=== PATIENT | female | born 1990 | race Caucasian/White ===

== ENCOUNTER 2016-02-24 09:10 | Emergency (ER) | payer OTHER ==
[2016-02-24 09:14] VITALS: BMI 20.9
[2016-02-24 09:58] LABS: URINE APPEARANCE CLEAR; URINE BILIRUBIN NEGATIVE (NEGATIVE); URINE BLOOD NEGATIVE (NEGATIVE); URINE COLOR YELLOW; URINE GLUCOSE (UA) NEGATIVE (NEGATIVE); URINE KETONE NEGATIVE (NEGATIVE); URINE LEUK ESTERASE NEGATIVE (NEGATIVE); URINE NITRITE NEGATIVE (NEGATIVE); URINE PROTEIN NEGATIVE (NEGATIVE); URINE UROBILINOGEN NEGATIVE E.U./dl (0.2-1.0)
--- NOTE | 2016-02-24 10:10 | PDOC ---
History of Present Illness - General Chief Complaint: Pain Stated Complaint: ABD CRAMPS Time Seen by Provider: 02/24/16 09:48 History Source: Patient Exam Limitations: No Limitations - History of Present Illness Travel History: No Initial Comments: 02/24/16 10:01 HPI: This 25 year old female presents with her spouse with c/o abd pain and vaginal clear discharge for three days. 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 She denies odor, bleeding, n, v, dsyuria, or sharp pain. Chief Compliant: abd cramping for 3 days and clear discharge. PMH: none FH: Pt has not recently traveled outside the country in the last 30 days. Pt has not been in contact with people who have traveled out of the country, in contact with people who have been ill with fever, n, v, d. SH: smoking use: NONE illicit drug use: NONE alcohol use: NONE employment/educational status: sexual history: PSH: Tubal ligation? (she is not sure if they tied or burned it or what she actually signed in 2013), 3 c sections Home med use noted on APR Allergies:nka Immunizations: PCP: Dr. Anthony Luevano [facility] [place] OFFICE COORDINATOR RECEPTIONIST:none for 2 years LMP:Feb 06 G3 P 3: 02/24/16 11:43 Past History - Past Medical History Allergies/Adverse Reactions: Allergies Allergy/AdvReac Type Severity Reaction Status Date / Time No Known Allergies Allergy Verified 02/24/16 09:14 Home Medications: Ambulatory Orders NK [No Known Home Medication] 02/24/16 Asthma: No Cancer: No Cardiac Disorders: No Diabetes: No HTN: No Seizures: No Thyroid Disease: No - Immunization History Immunization Up to Date: Yes - Psycho/Social/Smoking Cessation Hx Anxiety: No Suicidal Ideation: No Smoking History: Never smoked Have you smoked in the past 12 months: No Hx Alcohol Use: No Drug/Substance Use Hx: No Substance Use Type: None Hx Substance Use Treatment: No Review of Systems - Review of Systems Able to Perform ROS?: Yes (General statement: ) Comments:: 02/24/16 10:05 General statement: Abdominal cramping and vaginal discharge for 3 days Hematology: neg history of bleeding/blood thinners Skin: Neg for lesions, rash, bruising. HEENT: Neg symptoms Respiratory: Neg SOB or difficulty in breathing Cardiac: Neg chest pain GI: Abdominal cramping : Neg problems on voiding MS: Neg for joint pain/stiffness, no edema Neuro: Neg for LOC, weakness, Endocrine: Neg for excess thirst/hunger, cold/heat intolerance, excess sweating Allergies: Neg for allergies 02/24/16 11:46 *Physical Exam - Vital Signs Last Vital Signs Temp Pulse Resp BP Pulse Ox 97.8 F 84 20 95/63 100 02/24/16 09:11 02/24/16 09:11 02/24/16 09:11 02/24/16 09:11 02/24/16 09:11 - Physical Exam Comments: 02/24/16 10:05 General Appearance: This well appearing 5-year-old V/S: hemodynamically stable, afebrile Skin: WNL of pt's skin color, no signs of pallor, mottling, cyanosis Head:symmetrical Eyes: EOM's intact, PERRLA Ears: denies pain Nose: patent Throat: lips, teeth, gums, tongue, buccal mucos pink and moist Lungs: Chest symmetry equal. Cap refill <3 seconds. Lung sounds clear Cardiac: PMI at R 4MCL space, pos S1 and S2, regular rate. Abdomen: Soft, round, nontender PELVIC EXAM:External genitalia normal, normal vulva, no skin lesions. Cervix, adnexa, vaginal vault and uterus normal, no bleeding or clots noted. Ovaries and uterus normal size, no tenderness to palpation. No discharge or odor. Abdomen, back and flank are normal, and there is no back or flank pain. PELVIC EXAM:External genitalia normal, normal vulva, no skin lesions. Cervix, adnexa, vaginal vault and uterus normal, no bleeding or clots noted. Ovaries and uterus normal size, no tenderness to palpation. No discharge or odor. Abdomen, back and flank are normal, and there is no back or flank pain. : Not observed Muscularskeletal: Gait steady, ambulated in to ER, no edema +PMS Neuro: AAOx3, cognitively intact, speech clear and appropriate. 02/24/16 11:46 Medical Decision Making - Medical Decision Making 02/24/16 11:46 Pt seen and examined. She is c/o vaginal drainage and cramping. A/P R/o ovarian cyst, torsion, 1. u/a 2. hcg 3. transvaginal u/s 02/24/16 12:51 u/s shows no sign of ovarian cysts, torsion or emergent concern. I will print out report and give pt copy to have a manager body follow up down. ua/ neg and neg hcg. motrin only for cramps *DC/Admit/Observation/Transfer Diagnosis at time of Disposition: Abdominal cramping - Discharge Dispostion Disposition: HOME Condition at time of disposition: Stable Admit: No - Referrals Referrals: Adriana Haq MD [Staff Physician] - - Patient Instructions Printed Discharge Instructions: How to Perform a Breast Self-examination Additional Instructions: Discharge instructions 1. Please follow up with your primary physician within the next few days and explain that you have been seen here in the Emergency Room for abdominal cramping and vaginal discharge. . 2. If you experience any worsening of symptoms, please return to the ER 3. Rest, avoid sexual intercourse until follow up with OFFICE COORDINATOR RECEPTIONIST, avoid douching, tampon use or vaginal inserts. If you develop increase pain or vaginal bleeding abnormally, notify your OFFICE COORDINATOR RECEPTIONIST 4. Drink plenty of water and take motrin for pain. - Post Discharge Activity Work/School Note: Back to Work
[2016-02-24 13:20] VITALS: BP 124/74; PULSE 77; TEMP 98.6
== END 2016-02-24 13:18 | disposition home or self-care (01) ==
LOC: JER 09:10
DX: R10.9 Unspecified abdominal pain (principal)
CPT/HCPCS: 76830-TC; 76856-TC; 81003; 84703; 99281-25

== ENCOUNTER 2017-10-07 03:57 | Emergency (ER) | payer OTHER ==
[2017-10-07 04:51] VITALS: BP 122/58; PULSE 71; TEMP 97.9; BMI 23.6
[2017-10-07] MEDS ORDERED: DIPHTH,PERTUSS(ACELL),TET 0.5 ML DISP.SYRIN IM ONE (05:14)
--- NOTE | 2017-10-07 05:14 | PDOC ---
History of Present Illness - General Chief Complaint: Edema Stated Complaint: SWOLLEN TOE Time Seen by Provider: 10/07/17 04:31 History Source: Patient Exam Limitations: No Limitations - History of Present Illness Initial Comments: 10/07/17 05:16 Patient is a 26-year-old female with no past medical history who presents to the emergency department today for right first toe pain. Patient states that she had a hangnail to the right first toe and she picked it off. She states that now the area is painful and swollen. She believes the pain is worse from the heels she wore tonight. Denies fevers, chills, nausea, vomiting, weakness and tingling to the extremity. Past History - Travel Traveled outside of the country in the last 30 days: No Close contact w/someone who was outside of country & ill: No - Past Medical History Allergies/Adverse Reactions: Allergies Allergy/AdvReac Type Severity Reaction Status Date / Time No Known Allergies Allergy Verified 10/07/17 04:50 Home Medications: Ambulatory Orders Cephalexin Monohydrate [Keflex -] 500 mg PO BID #14 capsule 10/07/17 Sulfamethoxazole/Trimethoprim [Bactrim Ds -] 1 tab PO BID #14 tablet 10/07/17 Asthma: No Cancer: No Cardiac Disorders: No Diabetes: No HTN: No Seizures: No Thyroid Disease: No - Immunization History Immunization Up to Date: Yes - Suicide/Smoking/Psychosocial Hx Smoking History: Never smoked Have you smoked in the past 12 months: No Information on smoking cessation initiated: No Hx Alcohol Use: No Drug/Substance Use Hx: No Substance Use Type: None Hx Substance Use Treatment: No Review of Systems - Review of Systems Able to Perform ROS?: Yes Comments:: 10/07/17 05:17 CONSTITUTIONAL: Absent: fever, chills, diaphoresis, generalized weakness, malaise, loss of appetite HEENT: Absent: rhinorrhea, nasal congestion, throat pain, throat swelling, difficulty swallowing, mouth swelling, ear pain, eye pain, visual Changes CARDIOVASCULAR: Absent: chest pain, loss of consciousness, palpitations, irregular heart rate, peripheral edema RESPIRATORY: Absent: cough, shortness of breath, dyspnea with exertion, orthopnea, wheezing, stridor, hemoptysis GASTROINTESTINAL: Absent: abdominal pain, abdominal distension, nausea, vomiting, diarrhea, constipation, melena, hematochezia GENITOURINARY: Absent: dysuria, frequency, urgency, hesitancy, hematuria, flank pain, genital pain MUSCULOSKELETAL: Present: R first toe pain Absent: myalgia, joint swelling SKIN: Absent: rash, itching, pallor HEMATOLOGIC/IMMUNOLOGIC: Absent: easy bleeding, easy bruising, lymphadenopathy, frequent infections ENDOCRINE: Absent: unexplained weight gain, unexplained weight loss, heat intolerance, cold intolerance NEUROLOGIC: Absent: headache, focal weakness or paresthesias, dizziness, unsteady gait, seizure, mental status changes, bladder or bowel incontinence PSYCHIATRIC: Absent: anxiety, depression, suicidal or homicidal ideation, hallucinations. Is the patient limited Welsh proficient: No *Physical Exam - Vital Signs Last Vital Signs Temp Pulse Resp BP Pulse Ox 97.9 F 71 19 122/58 100 10/07/17 04:00 10/07/17 04:00 10/07/17 04:00 10/07/17 04:00 10/07/17 04:00 - Physical Exam Comments: 10/07/17 05:18 GENERAL: Well developed, well nourished. Awake and alert. No acute distress. MUSCULOSKELETAL Normal range of motion at all joints. No bony deformities or tenderness. No CVA tenderness. EXTREMITIES: No cyanosis. No clubbing. No edema. No calf tenderness. SKIN: R first toe nail partially missing to the lateral aspect of the toe. There is surrounding edema and warmth consistent with cellulitis surrounding the nail bed. The cellulitis is non-circumferential .Warm and dry. Normal capillary refill. No jaundice. NEUROLOGICAL: Alert, awake, appropriate. Cranial nerves 2-12 intact. No deficits to light touch and temperature in face, upper extremities and lower extremities. No motor deficits in the in face, upper extremities and lower extremities. Normoreflexic in the upper and lower extremities. Normal speech. Toes are down- going bilaterally. Gait is normal without ataxia. Medical Decision Making - Medical Decision Making 10/07/17 05:21 Patient is a 26-year-old female with no past medical history who presents to the emergency department today for right first toe pain. Patient states that she had a hangnail to the right first toe and she picked it off. -On exam, cellulitis surrounding the nail bed. The cellulitis is non- circumferential. -Lateral aspect of big toe is missing with scab over top of the area of missing nail. No paronychia present. -Toe was soaked in warm water and betadine. Unable to debride the toe at this time -Tetanus shot updated -Will dc home with abx and podietry follow up. Return precautions given. Pt understands all dc instructions and all questions were answered. *DC/Admit/Observation/Transfer Diagnosis at time of Disposition: Cellulitis Qualifiers: Site of cellulitis: extremity Site of cellulitis of extremity: toe Laterality: right Qualified Code(s): L03.031 - Cellulitis of right toe - Discharge Dispostion Disposition: HOME Condition at time of disposition: Stable - Referrals Referrals: Dru Lazaro RES [Primary Care Provider] - Sourav Pritchett MD [Staff Physician] - - Patient Instructions Printed Discharge Instructions: DI for Cellulitis -- Adult Additional Instructions: You have cellulitis. This is a skin infection. Please take the Bactrim and Keflex twice a day for one week. Please take all the antibiotics even if you feel better. You may use warm water soaks to the area. Please do this approximately 4-5 times a day. Please avoid shaving the skin around the area of redness. You may take Tylenol or Motrin as needed for pain. Please follow up with a podietrist on Monday. A referral has been provided to you. Return to the emergency department if you have worsening redness, fevers, increasing pain, or have any changes in your symptoms. - Post Discharge Activity
== END 2017-10-07 06:21 | disposition home or self-care (01) ==
LOC: JER 03:57
PROC: 3E0234Z Introduction of Serum, Toxoid and Vaccine into Muscle, Percutaneous Approach (ICD-10-PCS; principal; 2017-10-07)
DX: L03.031 Cellulitis of right toe (principal)
CPT/HCPCS: 90471; 90715; 99281-25

== ENCOUNTER 2018-12-19 16:35 | Emergency (ER) | payer OTHER ==
[2018-12-19 16:46] VITALS: BP 118/70; PULSE 75; TEMP 98.5; BMI 23.6
--- NOTE | 2018-12-19 16:46 | PDOC ---
Rapid Medical Evaluation Chief Complaint: Headache Time Seen by Provider: 12/19/18 16:44 Medical Evaluation: Allergies Allergy/AdvReac Type Severity Reaction Status Date / Time No Known Allergies Allergy Verified 10/07/17 04:50 12/19/18 16:44 I have performed a brief in-person evaluation of this patient. The patient presents with a chief complaint of: rt sided pressure headache x 20 minutes, denies h/a hx, no meds taken, no other complaints Pertinent physical exam findings: vss, moraima, ambulatory I have ordered the following: none The patient will proceed to the ED for further evaluation. Discharge Disposition - Diagnosis Headache - Referrals - Patient Instructions - Post Discharge Activity
[2018-12-19] MEDS ORDERED: ACETAMINOPHEN 500 MG TABLET (FP) PO ONE (17:04)
[2018-12-19] MEDS ORDERED: ACETAMINOPHEN 500 MG TABLET (FP) ONE (17:07)
--- NOTE | 2018-12-19 18:26 | PDOC ---
History of Present Illness - General Chief Complaint: Headache Stated Complaint: R/SIDED/HEAD PAIN Time Seen by Provider: 12/19/18 16:44 - History of Present Illness Initial Comments: 12/19/18 18:25 28-year-old female without comorbidities presents for evaluation of sudden onset of headache which started while she was driving. No visual changes nausea or vomiting. Past History - Past Medical History Allergies/Adverse Reactions: Allergies Allergy/AdvReac Type Severity Reaction Status Date / Time No Known Allergies Allergy Verified 12/19/18 16:46 Home Medications: Ambulatory Orders Cephalexin Monohydrate [Keflex -] 500 mg PO BID #14 capsule 10/07/17 Sulfamethoxazole/Trimethoprim [Bactrim Ds -] 1 tab PO BID #14 tablet 10/07/17 Asthma: No Cancer: No Cardiac Disorders: No COPD: No Diabetes: No HTN: No Seizures: No Thyroid Disease: No - Immunization History Immunization Up to Date: Yes - Psycho Social/Smoking Cessation Hx Smoking History: Never smoked Have you smoked in the past 12 months: No Information on smoking cessation initiated: No Hx Alcohol Use: No Drug/Substance Use Hx: No Substance Use Type: None Hx Substance Use Treatment: No Review of Systems - Review of Systems ABD/GI: No: Nausea, Vomiting Neurological: Yes: Headache *Physical Exam - Vital Signs Last Vital Signs Temp Pulse Resp BP Pulse Ox 98.5 F 75 18 118/70 100 12/19/18 16:44 12/19/18 16:44 12/19/18 16:44 12/19/18 16:44 12/19/18 16:44 - Physical Exam Comments: 12/19/18 18:25 GENERAL: The patient is awake, alert, and fully oriented, in no acute distress. HEAD: Normal with no signs of trauma. EYES: sclera anicteric, conjunctiva clear. ENT: Ears normal NECK: Normal range of motion LUNGS: Breath sounds equal, clear to auscultation bilaterally. No wheezes, and no crackles. HEART: S1 and S2 without murmur, rub or gallop. ABDOMEN: Soft, nontender, normoactive bowel sounds. No guarding, no rebound. No masses. EXTREMITIES: Normal range of motion, no edema. No clubbing or cyanosis. No cords, erythema, or tenderness. NEUROLOGICAL: Cranial nerves II through XII grossly intact. Normal speech, normal gait. PSYCH: Normal mood, normal affect. SKIN: Warm, Dry, normal turgor, no rashes or lesions noted. ED Treatment Course - ADDITIONAL ORDERS Additional order review: Laboratory Results 12/19/18 17:08 Urine HCG, Qual Negative - RADIOLOGY Radiology Studies Ordered: Category Date Time Status HEAD CT WITHOUT CONTRAST [CT] Stat CT Scan 12/19/18 17:45 Completed - Medications Given in the ED: ED Medications Discontinued Medications Generic Name Dose Route Start Last Admin Trade Name Evin PRN Reason Stop Dose Admin Acetaminophen 1,000 mg 12/19/18 17:04 12/19/18 17:09 Tylenol - PO 12/19/18 17:05 1,000 mg ONCE ONE Administration Medical Decision Making - Medical Decision Making 12/19/18 18:25 Normal CAT scan headache resolved with Tylenol follow-up with neurology Discharge - Discharge Information Problems reviewed: Yes Clinical Impression/Diagnosis: Headache Condition: Improved Disposition: HOME - Admission No - Follow up/Referral Referrals: ON STAFF,NOT [Primary Care Provider] - Shiv Brito MD [Staff Physician] - - Patient Discharge Instructions Additional Instructions: Tylenol and Motrin as directed for headaches. Return to the emergency room for worsening symptoms. Without fail please follow-up with neurology in 1 to 2 days for further evaluation and treatment options. - Post Discharge Activity
== END 2018-12-19 18:35 | disposition home or self-care (01) ==
LOC: JERFT 16:35
DX: R51 Headache (principal)
CPT/HCPCS: 70450-TC; 84703; 99281-25